=== PATIENT | male | born 1940 | race Caucasian/White ===

== ENCOUNTER 2021-04-14 12:00 | Inpatient (IN) | payer MEDICARE, BC ==
[2021-04-14] MEDS ORDERED: traMADol 50 MG Tab PO ONE (15:27)
[2021-04-14] MEDS ORDERED: traMADol 50 MG Tab ONE (15:30)
[2021-04-14] MEDS ORDERED: Spironolactone 25 MG Tab ONE (19:32)
[2021-04-14] MEDS: traMADol 50 MG Tab PO PRN (19:33)
[2021-04-14] MEDS: Non-Formulary Medication 1 Each (Spironolactone [Spironolactone] 50 MG Tablet) PO SCH (19:35)
[2021-04-14] MEDS: Acetaminophen/HYDROcodone 325-5 MG Tab PO PRN (22:02)
[2021-04-15] MEDS: Acetaminophen/HYDROcodone 325-5 MG Tab PO PRN ×4 (05:30→20:05)
[2021-04-15] MEDS ORDERED: Aspirin 81 MG Tab.Chew ONE (07:51)
[2021-04-15] MEDS ORDERED: Spironolactone 25 MG Tab ONE (07:51)
[2021-04-15] MEDS: Omeprazole 20 MG Cap.CR PO SCH (07:52)
[2021-04-15] MEDS: Furosemide 20 MG Tab PO SCH (07:52)
[2021-04-15] MEDS: Allopurinol 300 MG Tab PO SCH (07:53)
[2021-04-15] MEDS ORDERED: Non-Formulary Medication 1 Each (Aspirin [Vazalore] 81 MG Capsule) PO SCH (08:00)
[2021-04-15] MEDS: Non-Formulary Medication 1 Each (Spironolactone [Spironolactone] 50 MG Tablet) PO SCH (08:01)
[2021-04-15] MEDS: Ondansetron 4 MG Tab.DIS PO PRN (08:50)
[2021-04-15] MEDS: Aspirin 81 MG Tab.EC PO SCH (09:13)
[2021-04-15] MEDS: Spironolactone 25 MG Tab PO SCH ×2 (09:13→20:04)
[2021-04-15] MEDS: Enoxaparin 40 MG/0.4 ML Syringe SUBCUT SCH (09:18)
[2021-04-16] MEDS: Enoxaparin 40 MG/0.4 ML Syringe SUBCUT SCH (08:11)
[2021-04-16] MEDS: Allopurinol 300 MG Tab PO SCH (08:12)
[2021-04-16] MEDS: Acetaminophen/HYDROcodone 325-5 MG Tab PO PRN ×4 (08:12→22:54)
[2021-04-16] MEDS: Spironolactone 25 MG Tab PO SCH ×2 (08:12→19:46)
[2021-04-16] MEDS: Omeprazole 20 MG Cap.CR PO SCH (08:12)
[2021-04-16] MEDS: Aspirin 81 MG Tab.EC PO SCH (08:15)
[2021-04-16] MEDS: Furosemide 20 MG Tab PO SCH (08:15)
[2021-04-17] MEDS: Allopurinol 300 MG Tab PO SCH (07:41)
[2021-04-17] MEDS: Aspirin 81 MG Tab.EC PO SCH (07:41)
[2021-04-17] MEDS: Acetaminophen/HYDROcodone 325-5 MG Tab PO PRN ×3 (07:42→21:03)
[2021-04-17] MEDS: Omeprazole 20 MG Cap.CR PO SCH (07:42)
[2021-04-17] MEDS: Spironolactone 25 MG Tab PO SCH ×2 (07:42→21:00)
[2021-04-17] MEDS: Enoxaparin 40 MG/0.4 ML Syringe SUBCUT SCH (07:42)
[2021-04-17] MEDS: Furosemide 20 MG Tab PO SCH (07:42)
[2021-04-17] MEDS: Ondansetron 4 MG Tab.DIS PO PRN (08:50)
[2021-04-17] MEDS: traMADol 50 MG Tab PO PRN (16:30)
[2021-04-17] MEDS ORDERED: Polyethylene Glycol 3350 Powder 17 GM Packet PO PRN (18:15)
[2021-04-18] MEDS: Acetaminophen/HYDROcodone 325-5 MG Tab PO PRN ×2 (06:00→10:50)
[2021-04-18] MEDS ORDERED: Docusate Sodium 100 MG Cap PO SCH (08:00)
[2021-04-18] MEDS ORDERED: Docusate Sodium 100 MG Cap ONE (08:32)
[2021-04-18] MEDS: Enoxaparin 40 MG/0.4 ML Syringe SUBCUT SCH (08:39)
[2021-04-18] MEDS: Aspirin 81 MG Tab.EC PO SCH (08:40)
[2021-04-18] MEDS: Allopurinol 300 MG Tab PO SCH (08:40)
[2021-04-18] MEDS: Furosemide 20 MG Tab PO SCH (08:40)
[2021-04-18] MEDS: Omeprazole 20 MG Cap.CR PO SCH (08:40)
[2021-04-18] MEDS: Spironolactone 25 MG Tab PO SCH (08:40)
== END 2021-04-18 11:00 | disposition swing bed (61) | DRG 536 ==
LOC: LB.ED 12:00 → LB.MS 16:19
PROVIDERS: ADMIT Physician Assistant; ATTEND Physician Assistant
DX: S72.141A Displaced intertrochanteric fracture of right femur, initial encounter for closed fracture (principal); H54.7 Unspecified visual loss; K74.60 Unspecified cirrhosis of liver; Z96.641 Presence of right artificial hip joint; Z20.822 Contact with and (suspected) exposure to COVID-19; Z87.891 Personal history of nicotine dependence; Z79.82 Long term (current) use of aspirin; Z79.899 Other long term (current) drug therapy; W06.XXXA Fall from bed, initial encounter
CPT/HCPCS: 36415; 73502-RT; 73700-RT; 80048; 85025; 85610; 97161-GP; 97530-GP; 97597-GP; 99285-25; A0425; A0429; A9270-GY; J1650; Q0162; U0002

== ENCOUNTER 2021-04-18 11:00 | Inpatient (IN) | payer MEDICARE, BC ==
[2021-04-18] MEDS ORDERED: Tuberculin, PPD 5 Units/0.1 ML 1 ML MDV IDERM ONE (12:56)
[2021-04-18] MEDS: traMADol 50 MG Tab PO PRN (15:52)
[2021-04-18] MEDS ORDERED: Acetaminophen/HYDROcodone 325-10 MG Tab ONE (17:58)
[2021-04-18] MEDS: Acetaminophen/HYDROcodone 325-5 MG Tab PO PRN (17:59)
[2021-04-18] MEDS ORDERED: Non-Formulary Medication 1 Each (Spironolactone [Spironolactone] 50 MG Tablet) PO SCH (20:00)
[2021-04-18] MEDS: Docusate Sodium 100 MG Cap PO SCH (20:21)
[2021-04-18] MEDS: Spironolactone 25 MG Tab PO SCH (20:21)
[2021-04-19] MEDS: Omeprazole 20 MG Cap.CR PO SCH (07:56)
[2021-04-19] MEDS: Fish Oil/Omega-3 Fatty Acids 1 Gm Cap PO SCH (07:56)
[2021-04-19] MEDS: Docusate Sodium 100 MG Cap PO SCH ×2 (07:56→19:32)
[2021-04-19] MEDS: Aspirin 325 MG Tab.EC PO SCH (07:57)
[2021-04-19] MEDS: Furosemide 20 MG Tab PO SCH (07:57)
[2021-04-19] MEDS: Spironolactone 25 MG Tab PO SCH ×2 (07:57→19:32)
[2021-04-19] MEDS: Polyethylene Glycol 3350 Powder 17 GM Packet PO SCH (07:57)
[2021-04-19] MEDS ORDERED: Acetaminophen/HYDROcodone 325-10 MG Tab ONE (08:01)
[2021-04-19] MEDS: Allopurinol 300 MG Tab PO SCH (08:08)
[2021-04-19] MEDS: Acetaminophen/HYDROcodone 325-5 MG Tab PO PRN (08:08)
[2021-04-19] MEDS ORDERED: Polyethylene Glycol 3350 Powder 17 GM Packet ONE (09:51)
[2021-04-19] MEDS: Ondansetron 4 MG Tab.DIS PO PRN (15:00)
[2021-04-20] MEDS: traMADol 50 MG Tab PO PRN ×5 (05:09→20:58)
[2021-04-20] MEDS: Polyethylene Glycol 3350 Powder 17 GM Packet PO SCH (08:27)
[2021-04-20] MEDS: Fish Oil/Omega-3 Fatty Acids 1 Gm Cap PO SCH (08:28)
[2021-04-20] MEDS: Aspirin 325 MG Tab.EC PO SCH (08:28)
[2021-04-20] MEDS: Allopurinol 300 MG Tab PO SCH (08:28)
[2021-04-20] MEDS: Spironolactone 25 MG Tab PO SCH ×2 (08:31→20:57)
[2021-04-20] MEDS: Omeprazole 20 MG Cap.CR PO SCH (08:32)
[2021-04-20] MEDS: Docusate Sodium 100 MG Cap PO SCH ×2 (08:32→20:58)
[2021-04-20] MEDS: Furosemide 20 MG Tab PO SCH (08:35)
[2021-04-20] MEDS: Ondansetron 4 MG Tab.DIS PO PRN (09:09)
[2021-04-21] MEDS: traMADol 50 MG Tab PO PRN ×5 (04:07→22:20)
[2021-04-21] MEDS: Spironolactone 25 MG Tab PO SCH ×2 (08:24→19:43)
[2021-04-21] MEDS: Fish Oil/Omega-3 Fatty Acids 1 Gm Cap PO SCH (08:24)
[2021-04-21] MEDS: Polyethylene Glycol 3350 Powder 17 GM Packet PO SCH (08:25)
[2021-04-21] MEDS: Omeprazole 20 MG Cap.CR PO SCH (08:25)
[2021-04-21] MEDS: Allopurinol 300 MG Tab PO SCH (08:25)
[2021-04-21] MEDS: Docusate Sodium 100 MG Cap PO SCH ×2 (08:25→19:43)
[2021-04-21] MEDS: Furosemide 20 MG Tab PO SCH (08:25)
[2021-04-21] MEDS: Aspirin 325 MG Tab.EC PO SCH (08:25)
[2021-04-21] MEDS: Ondansetron 4 MG Tab.DIS PO PRN (10:23)
[2021-04-22] MEDS: traMADol 50 MG Tab PO PRN ×2 (06:10→10:00)
[2021-04-22] MEDS: Polyethylene Glycol 3350 Powder 17 GM Packet PO SCH (07:53)
[2021-04-22] MEDS: Docusate Sodium 100 MG Cap PO SCH (07:53)
[2021-04-22] MEDS: Spironolactone 25 MG Tab PO SCH (07:53)
[2021-04-22] MEDS: Allopurinol 300 MG Tab PO SCH (07:53)
[2021-04-22] MEDS: Fish Oil/Omega-3 Fatty Acids 1 Gm Cap PO SCH (07:54)
[2021-04-22] MEDS: Omeprazole 20 MG Cap.CR PO SCH (07:54)
[2021-04-22] MEDS: Aspirin 325 MG Tab.EC PO SCH (07:54)
[2021-04-22] MEDS: Furosemide 20 MG Tab PO SCH (07:55)
[2021-04-22] MEDS: Ondansetron 4 MG Tab.DIS PO PRN (09:38)
== END 2021-04-22 13:35 | disposition home or self-care (01) | DRG 561 ==
LOC: LB.MS 11:00
PROVIDERS: ADMIT Physician Assistant; ATTEND Physician Assistant
DX: S72.141D Displaced intertrochanteric fracture of right femur, subsequent encounter for closed fracture with routine healing (principal); H54.7 Unspecified visual loss; Z96.641 Presence of right artificial hip joint; Z79.82 Long term (current) use of aspirin; Z79.899 Other long term (current) drug therapy
CPT/HCPCS: 86580; 97110-GP; 97165-GO; 97530-GO; 97530-GP; 97535-GO; A9270-GY; Q0162